=== PATIENT | female | born 1990 | race Caucasian/White ===

== ENCOUNTER 2018-05-01 15:15 | Emergency (ER) | payer OTHER, SELFPAY ==
--- NOTE | 2018-05-01 15:31 | ED.EXTPRO ---
HPI - Extremity Problem <EN Castorena - Last Filed: 05/01/18 21:50> General Chief complaint: Extremity Injury, Lower Stated complaint: LEFT KNEE INJURY AT WORK Time Seen by Provider: 05/01/18 15:31 History of Present Illness HPI Narrative: 27-year-old female here for complaint of pain to her left knee after slipping and falling down on the left knee 2 days ago. She states that she was walking section only slipped hitting the anterior portion of her left knee on the ground when she fell. She reports increased pain with ambulation to the left knee and weight-bearing. She denies any other injuries or concerns at this point. Complaint: extremity pain Related Data Home Medications Medication Instructions Recorded Confirmed acetaminophen 1 dose PO PRN PRN 05/01/18 05/01/18 ibuprofen 1 dose PO PRN PRN 05/01/18 05/01/18 penicillin V potassium 500 mg PO TID 05/01/18 05/01/18 Allergies Allergy/AdvReac Type Severity Reaction Status Date / Time No Known Drug Allergies Allergy Verified 05/01/18 15:48 Review of Systems <EN Castorena - Last Filed: 05/01/18 21:50> Constitutional Denies chills, Denies fever(s), Denies lethargy and Denies weakness Eyes Denies change in vision, Denies eye discharge, Denies irritation and Denies loss of vision ENT Ears, Nose, Mouth, and Throat: Denies change in voice, Denies neck pain and Denies sore throat Cardiovascular Denies chest pain, Denies irregular heart rhythm, Denies lightheadedness, Denies palpitations, Denies dyspnea, Denies dyspnea on exertion and Denies orthopnea Respiratory Denies cough, Denies dyspnea, Denies dyspnea on exertion and Denies wheezing Gastrointestinal Gastrointestinal: Denies abdominal pain, Denies change in bowel habits, Denies diarrhea, Denies nausea and Denies vomiting Genitourinary Denies hematuria, Denies flank pain, Denies urinary incontinence and Denies urinary urgency Musculoskeletal Denies neck pain Comments: Left knee pain Integumentary/Breasts Denies pruritus, Denies erythema, Denies rash and Denies wounds Neurologic Denies confusion, Denies loss of vision and Denies weakness Psychiatric Denies anxiety, Denies confusion, Denies depression, Denies homicidal ideation and Denies suicidal ideation Endocrine Denies palpitations Hematologic/Lymphatic Denies easy bruising Allergic/Immunologic Denies wheezing Exam <EN Castorena - Last Filed: 05/01/18 21:50> Initial Vital Signs Initial Vital Signs: Vital Signs Temperature 98.0 F 05/01/18 15:48 Pulse Rate 98 H 05/01/18 15:48 Respiratory Rate 24 05/01/18 15:48 Blood Pressure 172/103 H 05/01/18 15:48 Pulse Oximetry 99 05/01/18 15:48 Const General: cooperative and well developed Nutritional Appearance: well nourished Orientation: alert, awake, oriented x3 and not confused HENND Mouth: oral mucosae normal and moist mucous membranes Eyes Sclera: sclerae normal Cornea: corneas normal Pupils: PERRL EOM: EOM intact bilaterally Resp Effort & Inspection: normal respiratory effort, able to speak in complete sentences, no respiratory distress and no use of accessory muscles Auscultation: clear to auscultation bilaterally, no rales, no rhonchi and no wheezes Cardio Rate: regular rate Rhythm: regular rhythm Heart Sounds: no click, no gallops, no murmurs and no rubs Pulses: normal peripheral pulses Skin General: no rashes or lesions noted, No jaundice and No petechiae Extrem Other: Left knee with no signs of trauma. No ecchymosis. No swelling. No deformities. Distal sensation is intact. Distal pulses are intact. Full range of motion. Negative anterior posterior drawer sign. Negative varus and valgus stress test <Rah Joseph DO - Last Filed: 05/02/18 07:16> Initial Vital Signs Initial Vital Signs: Vital Signs Temperature 98.0 F 05/01/18 15:48 Pulse Rate 98 H 05/01/18 15:48 Respiratory Rate 24 05/01/18 15:48 Blood Pressure 172/103 H 05/01/18 15:48 Pulse Oximetry 99 05/01/18 15:48 Course <EN Castorean - Last Filed: 05/01/18 21:50> Orders Ordered: ED Orders 05/01/18 15:49 XR knee LT 3V Stat 05/01/18 16:46 US extremity nonvasc lower lt Stat Vital Signs - 8 hr 05/01/18 15:48 05/01/18 17:35 Temperature 98.0 F Pulse Rate 98 H 94 H Respiratory Rate 24 20 Blood Pressure 172/103 H Blood Pressure [Left Arm] 150/93 H Pulse Oximetry 99 99 <Rah Joseph DO - Last Filed: 05/02/18 07:16> Orders Ordered: ED Orders 05/01/18 15:49 XR knee LT 3V Stat 05/01/18 16:46 US extremity nonvasc lower lt Stat Vital Signs - 8 hr 05/01/18 15:48 05/01/18 17:35 Temperature 98.0 F Pulse Rate 98 H 94 H Respiratory Rate 24 20 Blood Pressure 172/103 H Blood Pressure [Left Arm] 150/93 H Pulse Oximetry 99 99 MDM - Extremity (Nontraumatic) <EN Castorena - Last Filed: 05/01/18 21:50> Imaging Data Left knee xray: Radiologist's impression: MDM Narrative Medical decision making narrative: X-ray of the left knee was obtained and was negative for any acute fractures. Possible small joint effusion is seen in the joint. Possible mass was seen to the medial thigh ultrasound of that area was negative for any acute findings. Signs and symptoms presents as contusion/sprain of the right knee. She is placed in a knee immobilizer for comfort and support along with crutches for nonweightbearing. Her primary care provider is in [place] and she will be in this area for 2 months so she is referred to Orthopedics for further evaluation and continued pain and consideration for an MRI. [id number] Tylenol or Motrin as needed for any discomfort. Ice and elevation over the next few days to help with swelling. For any worsening symptoms return to the emergency room. Discharge Plan Departure Patient Disposition: Home, Self-Care Clinical Impression: Acute pain of left knee Discharge Date/Time: 05/01/18 18:07 Interventions: ED Discharge Assessment Last Done: 05/01/18 18:08 Instructions: DI for Knee Pain Activity Restrictions/Additional Instructions: X-ray of the left knee was negative for any acute fractures. There was a possible mass seen to the inner thigh on x-ray so ultrasound was obtained and was negative. Signs and symptoms of pain to the left knee presents as sprain/contusion you have been placed in a knee immobilizer for comfort and support. Use [id number] Tylenol and Motrin as needed for any discomfort. Ice and elevation to help with swelling. Crutches have been provided for nonweightbearing. Use crutches and knee immobilizer until able to ambulate without discomfort. You referred to Orthopedics for further evaluation and advanced imaging if needed if symptoms do not resolve. Call the office at number provided to schedule appointment. For any worsening symptoms return to the emergency room. Prescriptions: No Action acetaminophen 325 mg Tablet 1 dose PO PRN PRN (Reason: Pain, Mild) RF: 0 penicillin V potassium 500 mg Tablet 500 mg PO TID RF: 0 ibuprofen 200 mg Tablet 1 dose PO PRN PRN (Reason: Pain, Mild) RF: 0 Referrals: Tina Power MD [Physician] - <Rah Joseph DO - Last Filed: 05/02/18 07:16> Cosign ED Attending Cosmamiature Attestation: I was available for consultation during this patient's emergency department encounter
[2018-05-01 15:48] VITALS: BP 172/103; PULSE 98; RESP 24; TEMP 36.7; O2SAT 99; BMI 37.8
--- NOTE | 2018-05-01 15:49 | DI.RAD.S_ITS ---
PROCEDURE: XR KNEE LT 3V INDICATIONS: left knee pain/swelling after fall TECHNIQUE: 3 views of the knee were acquired. COMPARISON: None. FINDINGS: Bones: No fractures or dislocations. No suspicious bony lesions. Soft tissues: Small joint effusion. There appears to be in elongated, oval shaped soft tissue mass medial to the distal femur, estimated at 3 cm in width by 12 cm in length, possible hematoma. No suspicious soft tissue calcifications. IMPRESSION: 1. No acute bony abnormality. 2. Probable small joint effusion. 3. Possible large soft tissue mass/hematoma in the distal thigh medially. This could be further evaluated by ultrasound if indicated. Dictated by: Emmett Monaco M.D. on 05/01/2018 at 16:13 Approved by: Emmett Monaco M.D. on 05/01/2018 at 16:17
--- NOTE | 2018-05-01 16:46 | DI.US.S_ITS ---
PROCEDURE: US EXTREMITY NONVASC LOWER LT INDICATIONS: POSSIBLE HEMATOMA LEFT THIGH; 2 DAYS POST FALL TECHNIQUE: Real-time scanning was performed of the left thigh, with image documentation. COMPARISON: None. FINDINGS: No hematoma or other abnormal fluid collection identified in the left medial thigh. IMPRESSION: No sonographic abnormality identified in the left medial thigh. Dictated by: Barbara Umanzor MD, PhD on 05/01/2018 at 17:52 Approved by: Barbara Umanzor MD, PhD on 05/01/2018 at 17:53
[2018-05-01 17:35] VITALS: BP 150/93; PULSE 94; RESP 20; O2SAT 99
== END 2018-05-01 18:07 | disposition home or self-care (01) ==
PROVIDERS: Emergency Provider Nurse Practitioner Family
DX: M25.562 Pain in left knee (principal); W01.0XXA Fall on same level from slipping, tripping and stumbling without subsequent striking against object, initial encounter
CPT/HCPCS: 73562; 76882; 99282; 99284